=== PATIENT | male | born 1960 | race Caucasian/White ===

== ENCOUNTER 2017-09-03 15:15 | Emergency (ER) | payer MEDICARE ==
--- NOTE | 2017-09-03 15:52 | EDM.PDOC ---
ED HPI GENERAL MEDICAL PROBLEM - General Chief Complaint: ENT Problem Stated Complaint: TOOTH PAIN Time Seen by Provider: 09/03/17 15:18 Source of Information: Reports: Patient History Limitations: Reports: No Limitations - History of Present Illness INITIAL COMMENTS - FREE TEXT/NARRATIVE: HISTORY AND PHYSICAL: History of present illness: Patient is a 57-year-old male who presents to the emergency room with complaints of left lower jaw line pain and swelling. He states that he has had at least a dozen infections to his left lower posterior molar and has had a blocked salivary duct to that side as well. He states he usually takes penicillin and it resolves on its own. His dentist has given him a additional prescription for penicillin if this did occur in the future. Since he had this medication on hand and was only 6 months old, he did take penicillin for the past 2-3 days. She thought that the swelling was going down yesterday but woke up this morning with increased pain and swelling to the left low jaw line going into his neck. He states the pain is localized but does go down to his clavicle on the left side. He denies any fever or chills. Denies any chest pain, shortness of breath, abdominal pain, nausea, vomiting or diarrhea. Review of systems: As per history of present illness and below otherwise all systems reviewed and negative. Past medical history: As per history of present illness and as reviewed below otherwise noncontributory. Surgical history: As per history of present illness and as reviewed below otherwise noncontributory. Social history: No reported history of drug or alcohol abuse. Family history: As per history of present illness and as reviewed below otherwise noncontributory. Physical exam: General: Well-developed and well-nourished 57-year-old male. Alert and oriented. Nontoxic appearing and in no acute distress. HEENT: Atraumatic, normocephalic, pupils reactive, negative for conjunctival pallor or scleral icterus, mucous membranes moist, localized area of swelling to the left clavicluar lymph (no erythema) with tenderness to palpation, neck supple, nontender, trachea midline. Lungs: Clear to auscultation, breath sounds equal bilaterally, chest nontender. Heart: S1S2, regular rate and rhythm Abdomen: Soft, nondistended, nontender. Negative for masses or hepatosplenomegaly. Negative for costovertebral tenderness. Pelvis: Stable nontender. Genitourinary: Deferred. Rectal: Deferred. Extremities: Atraumatic, negative for cords or calf pain. Neurovascular unremarkable. Neuro: Awake, alert, oriented. Cranial nerves II through XII unremarkable. Cerebellum unremarkable. Motor and sensory unremarkable throughout. Exam nonfocal. CBC and CMP are within normal limits. The soft tissue CT shows inflammation within the left submandibular gland. No abscess or sialolith. This information was discussed with the patient and at bedside. We'll stop the patient's penicillin and switch him to clindamycin. Dental balls have been given to him. Saint [place]mo as needed for pain dispensed 10, no refill. May use Tylenol and/or ibuprofen. He states he'll follow-up with his dentist on Monday. Diagnostics: CBC, CMP, Soft Tissue Neck Therapeutics: Dental balls Impression: #1 Dental abscess #2 Submandibular Gland Inflammation Plan: 1. Please stop the antibiotic you have been taking. Clindamycin has been prescribed for you. [place]mo has been prescribed for you for evening and nighttime use. This medication does cause drowsiness he do not take it all driving or needing to be functioning outside of the house. Otherwise he may use Tylenol and /or ibuprofen for daytime use. 2. May use lemon drops to help with the discomfort with the salivary gland. He may want to follow up with ear nose and throat if this continues to be a problem. 3. Please follow-up with your dentist for definitive care. Return to the ED as needed and as discussed. Definitive disposition and diagnosis as appropriate pending reevaluation and review of above. throat Pain Score (Numeric/FACES): 5 - Related Data Allergies Allergy/AdvReac Type Severity Reaction Status Date / Time No Known Allergies Allergy Verified 09/03/17 15:21 Home Meds: Home Meds Celecoxib [CeleBREX] 50 mg PO DAILY 10/30/14 [History] Cyclobenzaprine [Flexeril] 10 mg PO DAILY 10/30/14 [History] Pregabalin [Lyrica] 225 mg PO BID 10/30/14 [History] Nortriptyline HCl [Pamelor] 1 cap PO DAILY 11/15/15 [History] Hydrocodone/Acetaminophen [Hydrocodon-Acetaminoph 7.5-325] 1 tab PO DAILY [History] Prednisone [IJD: predniSONE] 20 mg PO BID #10 tab 07/31/16 [Rx] Past Medical History HEENT History: Reports: None Cardiovascular History: Reports: None Respiratory History: Reports: None Gastrointestinal History: Reports: None Neurological History: Reports: None Psychiatric History: Reports: None Endocrine/Metabolic History: Reports: None Hematologic History: Reports: None Immunologic History: Reports: None Oncologic (Cancer) History: Reports: None Dermatologic History: Reports: None - Infectious Disease History Infectious Disease History: Reports: Chicken Pox - Past Surgical History Head Surgeries/Procedures: Reports: None HEENT Surgical History: Reports: None Musculoskeletal Surgical History: Reports: Shoulder Surgery Oncologic Surgical History: Reports: None Social & Family History - Family History HEENT: Reports: None Cardiac: Reports: None - Tobacco Use Smoking Status *Q: Current Every Day Smoker Years of Tobacco use: 25 Packs/Tins Daily: 0.5 Second Hand Smoke Exposure: Yes - Caffeine Use Caffeine Use: Reports: Coffee - Alcohol Use Days Per Week of Alcohol Use: 0 - Recreational Drug Use Recreational Drug Use: No Drug Use in Last 12 Months: No ED ROS ENT - Review of Systems Review Of Systems: ROS reveals no pertinent complaints other than HPI. ED EXAM, ENT - Physical Exam Exam: See Below (See dictation) Course - Vital Signs Last Recorded V/S: Last Vital Signs Temp 97.6 F 09/03/17 15:22 Pulse 113 H 09/03/17 15:22 Resp 18 09/03/17 15:22 BP 134/78 09/03/17 15:22 Pulse Ox - Orders/Labs/Meds Orders: Active Orders 24 hr Category Date Time Status Soft Tissue Neck w Cont [CT] Stat Exams 09/03/17 15:33 Taken Labs: Laboratory Tests 09/03/17 09/03/17 Range/Units 15:40 15:40 WBC 9.79 (4.0-11.0) K/uL RBC 4.90 (4.50-5.90) M/uL Hgb 15.2 (13.0-17.0) g/dL Hct 44.0 (38.0-50.0) % MCV 89.8 (80.0-98.0) fL MCH 31.0 (27.0-32.0) pg MCHC 34.5 (31.0-37.0) g/dL RDW Std Deviation 46.5 (28.0-62.0) fl RDW Coeff of Stanley 14 (11.0-15.0) % Plt Count 202 (150-400) K/uL MPV 10.30 (7.40-12.00) fL Neut % (Auto) 61.1 (48.0-80.0) % Lymph % (Auto) 29.7 (16.0-40.0) % [place] % (Auto) 7.8 (0.0-15.0) % Eos % (Auto) 1.2 (0.0-7.0) % Baso % (Auto) 0.2 (0.0-1.5) % Neut # (Auto) 6.0 H (1.4-5.7) K/uL Lymph # (Auto) 2.9 H (0.6-2.4) K/uL [place] # (Auto) 0.8 (0.0-0.8) K/uL Eos # (Auto) 0.1 (0.0-0.7) K/uL Baso # (Auto) 0.0 (0.0-0.1) K/uL Nucleated RBC % 0.0 /100WBC Nucleated RBCs # 0 K/uL Sodium 140 (136-146) mmol/L Potassium 4.1 (3.5-5.1) mmol/L Chloride 108 (98-110) mmol/L Carbon Dioxide 21 (21-31) mmol/L BUN 16 (6.0-23.0) mg/dL Creatinine 1.0 (0.6-1.5) mg/dL Est Cr Clr Drug Dosing 101.48 mL/min Estimated GFR (MDRD) > 60.0 ml/min Glucose 142 H (60-110) mg/dL Calcium 9.2 (8.8-10.8) mg/dL Total Bilirubin 0.4 (0.1-1.5) mg/dL AST 22 (5-40) IU/L ALT 28 (8-54) IU/L Alkaline Phosphatase 71 (40-150) Total Protein 7.5 (6.0-8.0) g/dL Albumin 4.2 (3.5-5.0) g/dL Globulin 3.3 (2.0-3.5) g/dL Albumin/Globulin Ratio 1.3 (1.3-2.8) Meds: Medications Discontinued Medications Generic Name Dose Route Start Last Admin Trade Name Ruth PRN Reason Stop Dose Admin Iopamidol 80 ml 09/03/17 16:59 09/03/17 16:59 Isovue-370 (76%) IVPUSH 09/03/17 17:00 80 ml ONETIME STA Administration Departure - Departure Time of Disposition: 17:36 Disposition: Home, Self-Care 01 Clinical Impression: Submandibular gland inflammation, Dental abscess - Discharge Information Referrals: Michael Rowland MD [Primary Care Provider] - Forms: ED Department Discharge Additional Instructions: My general discharge The following information is given to patients seen in the emergency department who are being discharged to home. This information is to outline your options for follow-up care. We provide all patients seen in our emergency department with a follow-up referral. The need for follow-up, as well as the timing and circumstances, are variable depending upon the specifics of your emergency department visit. If you don't have a primary care physician on staff, we will provide you with a referral. We always advise you to contact your personal physician following an emergency department visit to inform them of the circumstance of the visit and for follow-up with them and/or the need for any referrals to a consulting specialist. The emergency department will also refer you to a specialist when appropriate. This referral assures that you have the opportunity for follow-up care with a specialist. All of these measure are taken in an effort to provide you with optimal care, which includes your follow-up. Under all circumstances we always encourage you to contact your private physician who remains a resource for coordinating your care. When calling for follow-up care, please make the office aware that this follow-up is from your recent emergency room visit. If for any reason you are refused follow-up, please contact the [facility] Emergency Department at and asked to speak to the emergency department charge nurse. [facility] [address] [place] [id number] 1. Please stop the antibiotic you have been taking. Clindamycin has been prescribed for you. [place]mo has been prescribed for you for evening and nighttime use. This medication does cause drowsiness he do not take it all driving or needing to be functioning outside of the house. Otherwise he may use Tylenol and /or ibuprofen for daytime use. 2. May use lemon drops to help with the discomfort with the salivary gland. He may want to follow up with ear nose and throat if this continues to be a problem. 3. Please follow-up with your dentist for definitive care. Return to the ED as needed and as discussed. - My Orders Last 24 Hours: My Active Orders 09/03/17 15:33 Soft Tissue Neck w Cont [CT] Stat - Assessment/Plan Last 24 Hours: My Active Orders 09/03/17 15:33 Soft Tissue Neck w Cont [CT] Stat
[2017-09-03 16:16] LABS: CHLORIDE,CL 108 mmol/L (98-110); SODIUM,NA 140 mmol/L (136-146)
[2017-09-03] MEDS ORDERED: Iopamidol 755 Mg/ML 100 ML Bottle IVPUSH STA (16:59)
[2017-09-03] MEDS ORDERED: Benzocaine 20% Topical Spray UD MUCMEM ONE (17:37)
[2017-09-03] MEDS ORDERED: Lidocaine 2% Viscous Solution 15 ML Cup PO ONE (17:37)
[2017-09-03] MEDS ORDERED: Lidocaine 2% Viscous Solution 100 ML Bottle PO ONE (17:37)
[2017-09-03 17:52] VITALS: BP 104/78
--- NOTE | 2017-09-04 16:13 | CT ---
EXAM DATE: 09/03/17 PATIENT'S AGE: 57 Patient: NIALL NESS Facility: [place], [place] Site . Site : 1960 Study: CT ST Neck W CONT [id number]/[id number] 5:02:53 PM Ordering Physician: Doctor Walsh Final Report: INDICATION: Left-sided neck pain. Possible abscess. COMPARISON: none TECHNIQUE: A CT volumetric acquisition was performed of the neck during intravenous infusion of 80 cc of Isovue-370 nonionic intravenous contrast. FINDINGS: The CT images demonstrate normal aeration of the mastoid air cells and middle ear cavities. The paranasal sinuses are clear. The nasopharynx appears normal. The parotid glands are of normal size and have uniform enhancement. The anterior oropharynx is obscured by metallic spray artifact relating to dental fillings. The posterior oropharynx appears normal. The valleculae, epiglottis, aryepiglottic folds and piriform sinuses appear normal. The right submandibular gland appears normal. There is enlargement and edematous change within the left submandibular gland and there are adjacent enlarged lymph nodes measuring up to 8 mm in size. There is no evidence of central tissue necrosis or abscess formation within the inflamed left parotid gland. A few mildly enlarged lymph nodes are noted within the submental region. There is slight stranding within the fat planes involving the lower margin of the parotid gland and there is slight edema within the overlying platysma muscle. There is a normal appearance of the larynx and subglottic trachea. The thyroid gland is of normal size and has uniform density. There is milder reactive cervical lymph node enlargement within the left anterior cervical triangle. The right neck is clear of lymph node enlargement. IMPRESSION: Inflammation identified within the left submandibular gland. No evidence of abscess or sialolith. Please note that all CT scans at this facility use dose modulation, iterative reconstruction, and/or weight-based dosing when appropriate to reduce radiation dose to as low as reasonably achievable. Dictated by Fabio Casper MD @ Sep 03 2017 5:20PM (Electronic Signature) Report Signed by Proxy. [facility] SYSTEMPatricia
== END 2017-09-03 17:52 | disposition home or self-care (01) ==
LOC: MW.ED 15:15
DX: K04.7 Periapical abscess without sinus (principal); M27.2 Inflammatory conditions of jaws; F17.210 Nicotine dependence, cigarettes, uncomplicated; Z79.899 Other long term (current) drug therapy
CPT/HCPCS: 36415; 70491; 80053; 85025; 99283; A9270; Q9967

== ENCOUNTER 2018-11-29 10:43 | Emergency (ER) | payer MEDICARE ==
[2018-11-29] MEDS ORDERED: Sodium Chloride 0.9% 10 ML Syringe FLUSH PRN (10:49)
[2018-11-29] MEDS ORDERED: Ketorolac 30 MG/ML SDV IVPUSH ONE (10:49)
[2018-11-29] MEDS ORDERED: Morphine 2 MG/ML Syringe IVPUSH ONE (10:49)
[2018-11-29] MEDS ORDERED: Ondansetron 4 MG/2 ML SDV IVPUSH ONE (10:49)
[2018-11-29] MEDS ORDERED: Sodium Chloride 0.9% 2.5 ML Syringe FLUSH PRN (10:49)
--- NOTE | 2018-11-29 10:54 | EDM.PDOC ---
ED HPI GENERAL MEDICAL PROBLEM - General Chief Complaint: Chest Pain Stated Complaint: chest pain Time Seen by Provider: 11/29/18 10:48 - History of Present Illness INITIAL COMMENTS - FREE TEXT/NARRATIVE: HISTORY AND PHYSICAL: History of present illness: The patient is a 58-year-old male who follows with our family practice clinic and also has a pain doctor in [place] for which he follows for pain management for issues with brachial plexus injury and chronic pain on his left upper extremity, who presents this morning with complaints of sudden onset of right- sided chest pain. The patient says he had a normal day yesterday and slept fine and woke up and did all of his normal activities and as he was just doing normal functions he felt sudden onset of right-sided chest pain that he indicates is anteriorly just lateral to the right breast. He says it radiates to his lower ribs on the right but not to his shoulder or his back. He said that he felt nauseated and a little short of breath when it occurred and he says it felt like either a muscle spasm or a collapsed lung. He said he had a collapsed lung in the past with an accident but has had no other pulmonary issues. The patient says that the pain is worse with deep breaths and movement of his right arm. The pain does not radiate to the left and he has no abdominal complaints. The patient has not had vomiting or diarrhea has no flank pain or urinary complaints and no fevers chills cough runny nose or sore throat. He has no leg pain or swelling. The patient took one of his OxyContin prior to coming here and it did not improve so he came for evaluation. He tells me he has had gallbladder problems" in the past but he has never had any correction of that. He says he's been eating and drinking normally without issues and currently denies any upper abdominal pain. Patient says he smokes a few cigarettes occasionally but he denies any drug use and also denies any trauma to his right chest wall area Review of systems: As per history of present illness and below otherwise all systems reviewed and negative. Past medical history: As per history of present illness and as reviewed below otherwise noncontributory. Surgical history: As per history of present illness and as reviewed below otherwise noncontributory. Social history: No reported history of drug or alcohol abuse. Family history: As per history of present illness and as reviewed below otherwise noncontributory. Physical exam: General: Well-developed well-nourished man who is nontoxic and looks uncomfortable with movements in the ED. Vital signs are noted by me HEENT: Atraumatic, normocephalic, negative for conjunctival pallor or scleral icterus, mucous membranes moist, throat clear, neck supple, nontender, trachea midline. Lungs: Clear to auscultation, breath sounds equal bilaterally, chest nontender. On palpation of the anterior right chest wall I cannot reproduce the pain and there is no defects crepitus soft tissue changes ecchymosis or erythema. With range of motion of his right upper extremity the patient does grimace and say that the pain is reproduced with that. It is also reproduced when I have him go from supine to sitting position. Heart: S1S2, regular, negative for clicks, rubs, or JVD. Abdomen: Soft, nondistended, bowel sounds are slightly hypoactive and there is no rebound or guarding but there is some mild tenderness with palpation of the right upper quadrant. Negative for masses or hepatosplenomegaly. Negative for costovertebral tenderness. Pelvis: Stable nontender. Genitourinary: Deferred. Rectal: Deferred. Extremities: Atraumatic, negative for cords or calf pain. Neurovascular unremarkable. No pedal edema or leg asymmetry Neuro: Awake, alert, oriented. Cranial nerves II through XII unremarkable. Cerebellum unremarkable. Motor and sensory unremarkable throughout. Exam nonfocal. Diagnostics: EKG CBC CMP amylase lipase d-dimer INR chest x-ray CTA of the chest, CT of the abdomen and pelvis Therapeutics: IV O2 monitor IV fluids Toradol morphine Zofran I discussed with the patient and at length all testing results and he says he is feeling much improved and is able to speak pretty breaths and able to move his arm around better. He says he still has some discomfort but is significantly improved. He says he has intermittent pain with his shoulder and has chronic nerve pain on the left side and muscle spasms and he says he just feels somewhat concerned about today's presentation. I offered him CT scans of the chest and an abdomen 2 look more closely at his long and gallbladder area and feels more comfortable with investigating this to the maximum we can here in the ED. Patient and are aware of CT scan findings as well as the abnormality seen at the base of the left lung. At this point the patient does not have a cough fever or any left-sided chest pain and his labs are within normal limits so I will not treat this as a pneumonia clinically. I've advised him to continue to monitor his symptoms to see if anything develops regarding this finding. The patient says he has pain management options at home including muscle relaxers and has a pain management physician he can consult. He is comfortable with discharge home Impression: Right-sided chest pain Definitive disposition and diagnosis as appropriate pending reevaluation and review of above. right chest Pain Score (Numeric/FACES): 8 - Related Data Allergies Allergy/AdvReac Type Severity Reaction Status Date / Time No Known Allergies Allergy Verified 11/29/18 10:44 Home Meds: Home Meds Celecoxib [CeleBREX] 50 mg PO DAILY 10/30/14 [History] Cyclobenzaprine [Flexeril] 10 mg PO DAILY 10/30/14 [History] Pregabalin [Lyrica] 225 mg PO BID 10/30/14 [History] Nortriptyline HCl [Pamelor] 1 cap PO DAILY 11/15/15 [History] Hydrocodone/Acetaminophen [Hydrocodon-Acetaminoph 7.5-325] 1 tab PO DAILY [History] Prednisone [IJD: predniSONE] 20 mg PO BID #10 tab 07/31/16 [Rx] Past Medical History HEENT History: Reports: None Cardiovascular History: Reports: None Respiratory History: Reports: Pneumothorax Gastrointestinal History: Reports: Cholelithiasis Genitourinary History: Reports: None Musculoskeletal History: Reports: None Neurological History: Reports: Other (See Below) Other Neuro History: Brachial Plexus Psychiatric History: Reports: None Endocrine/Metabolic History: Reports: None Hematologic History: Reports: None Immunologic History: Reports: None Oncologic (Cancer) History: Reports: None Dermatologic History: Reports: None - Infectious Disease History Infectious Disease History: Reports: Chicken Pox - Past Surgical History Head Surgeries/Procedures: Reports: None HEENT Surgical History: Reports: None Cardiovascular Surgical History: Reports: None Respiratory Surgical History: Reports: Other (See Below) GI Surgical History: Reports: None Male Surgical History: Reports: None Endocrine Surgical History: Reports: None Neurological Surgical History: Reports: None, Other (See Below) Other Neurological Surgeries/Procedures: "surgery for brachial plexus" Musculoskeletal Surgical History: Reports: Shoulder Surgery Oncologic Surgical History: Reports: None Dermatological Surgical History: Reports: None Social & Family History - Family History HEENT: Reports: None Cardiac: Reports: None - Tobacco Use Smoking Status *Q: Current Some Day Smoker Years of Tobacco use: 5 Packs/Tins Daily: 0.1 - Caffeine Use Caffeine Use: Reports: Coffee - Recreational Drug Use Recreational Drug Use: No ED ROS GENERAL - Review of Systems Review Of Systems: ROS reveals no pertinent complaints other than HPI. ED EXAM, GENERAL - Physical Exam Exam: See Below (See dictation) Course - Vital Signs Last Recorded V/S: Last Vital Signs Temp 36.3 C 11/29/18 10:44 Pulse 84 11/29/18 12:40 Resp 18 11/29/18 12:40 BP 138/94 H 11/29/18 12:40 Pulse Ox 95 11/29/18 12:40 - Orders/Labs/Meds Orders: Active Orders 24 hr Category Date Time Status Cardiac Monitoring [RC] . DIRECTED Care 11/29/18 10:49 Active EKG Documentation Completion [RC] STAT Care 11/29/18 10:49 Active Oxygen Therapy, ED [RC] ASDIRECTED Care 11/29/18 10:49 Active Pulse Oximetry [RC] ASDIRECTED Care 11/29/18 10:49 Active Sodium Chloride 0.9% [Normal Saline] 1,000 ml Med 11/29/18 11:00 Active IV ASDIRECTED Sodium Chloride 0.9% [Saline Flush] Med 11/29/18 10:49 Active 10 ml FLUSH ASDIRECTED PRN Sodium Chloride 0.9% [Saline Flush] Med 11/29/18 10:49 Active 2.5 ml FLUSH ASDIRECTED PRN Saline Lock Insert [OM.PC] Stat Oth 11/29/18 10:49 Ordered Medication Orders Sodium Chloride (Normal Saline) 1,000 mls @ 125 mls/hr IV ASDIRECTED JULIETH Last Admin: 11/29/18 11:13 Dose: 125 mls/hr Sodium Chloride (Saline Flush) 10 ml FLUSH ASDIRECTED PRN PRN Reason: Keep Vein Open Last Admin: 11/29/18 11:12 Dose: 10 ml Sodium Chloride (Saline Flush) 2.5 ml FLUSH ASDIRECTED PRN PRN Reason: Keep Vein Open Last Admin: 11/29/18 11:12 Dose: 2.5 ml Labs: Laboratory Tests 11/29/18 11/29/18 11/29/18 Range/Units 10:50 10:50 10:50 WBC 6.08 (4.0-11.0) K/uL RBC 4.76 (4.50-5.90) M/uL Hgb 15.0 (13.0-17.0) g/dL Hct 43.4 (38.0-50.0) % MCV 91.2 (80.0-98.0) fL MCH 31.5 (27.0-32.0) pg MCHC 34.6 (31.0-37.0) g/dL RDW Std Deviation 48.8 (28.0-62.0) fl RDW Coeff of Stanley 15 (11.0-15.0) % Plt Count 170 (150-400) K/uL MPV 11.10 (7.40-12.00) fL Neut % (Auto) 49.7 (48.0-80.0) % Lymph % (Auto) 39.1 (16.0-40.0) % Orange % (Auto) 9.5 (0.0-15.0) % Eos % (Auto) 1.5 (0.0-7.0) % Baso % (Auto) 0.2 (0.0-1.5) % Neut # (Auto) 3.0 (1.4-5.7) K/uL Lymph # (Auto) 2.4 (0.6-2.4) K/uL Orange # (Auto) 0.6 (0.0-0.8) K/uL Eos # (Auto) 0.1 (0.0-0.7) K/uL Baso # (Auto) 0.0 (0.0-0.1) K/uL Nucleated RBC % 0.0 /100WBC Nucleated RBCs # 0 K/uL INR 0.96 D-Dimer, Quantitative 0.21 (0.0-0.50) mg/L FEU Sodium 139 (136-148) mmol/L Potassium 3.9 (3.5-5.1) mmol/L Chloride 104 (98-107) mmol/L Carbon Dioxide 23.2 (21.0-32.0) mmol/L BUN 15 (7.0-18.0) mg/dL Creatinine 1.0 (0.8-1.3) mg/dL Est Cr Clr Drug Dosing 97.65 mL/min Estimated GFR (MDRD) > 60.0 ml/min Glucose 108 H (74-106) mg/dL Calcium 9.2 (8.5-10.1) mg/dL Total Bilirubin 0.4 (0.2-1.0) mg/dL AST 14 L (15-37) IU/L ALT 27 (14-63) IU/L Alkaline Phosphatase 62 (46-116) U/L Total Protein 7.9 (6.4-8.2) g/dL Albumin 3.5 (3.4-5.0) g/dL Globulin 4.4 H (2.6-4.0) g/dL Albumin/Globulin Ratio 0.8 L (0.9-1.6) Amylase 44 (25-115) U/L Lipase 119 (73-393) U/L Meds: Medications Generic Name Dose Route Start Last Admin Trade Name Freq PRN Reason Stop Dose Admin Sodium Chloride 1,000 mls @ 125 mls/hr 11/29/18 11:00 11/29/18 11:13 Normal Saline IV 125 mls/hr ASDIRECTED JUILETH Administration Sodium Chloride 10 ml 11/29/18 10:49 11/29/18 11:12 Saline Flush FLUSH 10 ml ASDIRECTED PRN Administration Keep Vein Open Sodium Chloride 2.5 ml 11/29/18 10:49 11/29/18 11:12 Saline Flush FLUSH 2.5 ml ASDIRECTED PRN Administration Keep Vein Open Discontinued Medications Generic Name Dose Route Start Last Admin Trade Name Freq PRN Reason Stop Dose Admin Iopamidol 100 ml 11/29/18 12:34 11/29/18 12:49 Isovue Multipack-370 (76%) IVPUSH 11/29/18 12:35 100 ml ONETIME STA Administration Ketorolac Tromethamine 30 mg 11/29/18 10:49 11/29/18 11:01 Toradol IVPUSH 11/29/18 10:50 30 mg ONETIME ONE Administration Morphine Sulfate 4 mg 11/29/18 10:49 11/29/18 11:05 Morphine IVPUSH 11/29/18 10:50 4 mg ONETIME ONE Administration Ondansetron HCl 4 mg 11/29/18 10:49 11/29/18 10:59 Zofran IVPUSH 11/29/18 10:50 4 mg ONETIME ONE Administration Departure - Departure Time of Disposition: 13:40 Disposition: Home, Self-Care 01 Condition: Good Clinical Impression: Right-sided chest wall pain - Discharge Information Referrals: PCP,None [Primary Care Provider] - Forms: ED Department Discharge Additional Instructions: The following information is given to patients seen in the emergency department who are being discharged to home. This information is to outline your options for follow-up care. We provide all patients seen in our emergency department with a follow-up referral. The need for follow-up, as well as the timing and circumstances, are variable depending upon the specifics of your emergency department visit. If you don't have a primary care physician on staff, we will provide you with a referral. We always advise you to contact your personal physician following an emergency department visit to inform them of the circumstance of the visit and for follow-up with them and/or the need for any referrals to a consulting specialist. The emergency department will also refer you to a specialist when appropriate. This referral assures that you have the opportunity for followup care with a specialist. All of these measure are taken in an effort to provide you with optimal care, which includes your followup. Under all circumstances we always encourage you to contact your private physician who remains a resource for coordinating your care. When calling for followup care, please make the office aware that this follow-up is from your recent emergency room visit. If for any reason you are refused follow-up, please contact the [facility] emergency department at and ask to speak to the emergency department charge nurse. [facility] Primary care- Internal Medicine and Family [address] [address] Please connect with your provider in the clinic for reevaluation and further care and use her home medications as you choose for pain management. Also contact your pain management doctor as needed for further options. Do all activities more slowly as we discussed and return to ER as needed and as discussed. Apply ice or heat to areas of discomfort as you choose - My Orders Last 24 Hours: My Active Orders 11/29/18 10:49 Cardiac Monitoring [RC] . DIRECTED EKG Documentation Completion [RC] STAT Oxygen Therapy, ED [RC] ASDIRECTED Pulse Oximetry [RC] ASDIRECTED Sodium Chloride 0.9% [Saline Flush] 10 ml FLUSH ASDIRECTED PRN Sodium Chloride 0.9% [Saline Flush] 2.5 ml FLUSH ASDIRECTED PRN Saline Lock Insert [OM.PC] Stat 11/29/18 11:00 Sodium Chloride 0.9% [Normal Saline] 1,000 ml IV ASDIRECTED - Assessment/Plan Last 24 Hours: My Active Orders 11/29/18 10:49 Cardiac Monitoring [RC] . DIRECTED EKG Documentation Completion [RC] STAT Oxygen Therapy, ED [RC] ASDIRECTED Pulse Oximetry [RC] ASDIRECTED Sodium Chloride 0.9% [Saline Flush] 10 ml FLUSH ASDIRECTED PRN Sodium Chloride 0.9% [Saline Flush] 2.5 ml FLUSH ASDIRECTED PRN Saline Lock Insert [OM.PC] Stat 11/29/18 11:00 Sodium Chloride 0.9% [Normal Saline] 1,000 ml IV ASDIRECTED
[2018-11-29] MEDS ORDERED: Sodium Chloride 0.9% 1,000 ML IV SCH (11:00)
[2018-11-29 11:29] LABS: CHLORIDE,CL 104 mmol/L (98-107); SODIUM,NA 139 mmol/L (136-148)
--- NOTE | 2018-11-29 11:39 | CR ---
EXAMINATION: Portable chest radiograph. HISTORY: Shortness of breath. FINDINGS: The trachea is midline. The cardiomediastinal silhouette is within normal limits. No pulmonary infiltrates, effusions or pneumothorax. Osseous structures appear unremarkable. Left clavicle, scapula, and humerus hardware noted. IMPRESSION: No acute cardiopulmonary process.
[2018-11-29] MEDS ORDERED: Iopamidol 755 MG/ML 500 ML Multipack Bottle IVPUSH STA (12:34)
--- NOTE | 2018-11-29 13:22 | CT ---
EXAMINATION: CTA chest HISTORY: Chest pain COMPARISON: Radiographs dated 11/29/2018 TECHNIQUE: Axial CT imaging obtained through the chest following the administration of 100 mL of Isovue-370 in the right antecubital fossa. Coronal and sagittal reconstructions obtained. FINDINGS: There is mild infiltrate within the left lung base. Bibasilar atelectasis is also noted. No pleural effusion or pneumothorax. The heart is borderline in size without a pericardial effusion. The thoracic aorta is normal in caliber. The main and central pulmonary arteries are patent. Artifact obscures fine detail within the lung apices. Mild coronary artery calcifications are noted. Nonpathologically enlarged mediastinal and hilar lymph nodes noted, most likely reactive. Mild right gynecomastia. The visualized images of the upper abdomen are grossly unremarkable. No suspicious osseous abnormalities identified. IMPRESSION: 1. Mild consolidation within the left lung base, possibly developing pneumonia. 2. No pulmonary embolism identified. 3. Mild coronary artery calcifications.
--- NOTE | 2018-11-29 13:30 | CT ---
CT of the abdomen and pelvis with contrast. HISTORY: Pain TECHNIQUE: Axial CT images were obtained of the abdomen and pelvis following administration of 100 mL of Isovue-370 in the right antecubital fossa without complication. Coronal and sagittal reconstructions obtained. FINDINGS: Mild consolidation noted within the left lung base. The liver, spleen, adrenal glands, and pancreas appear normal. The gallbladder is normal. There is no bulky retroperitoneal lymphadenopathy or abdominal ascites. The kidneys enhance and function symmetrically without evidence of obstructive uropathy. The large and small bowel are normal in caliber without evidence of obstruction. No focal pericolonic inflammation or stranding. Minimal diverticulosis without evidence of diverticulitis. Urinary bladder is normal. No bulky pelvic lymphadenopathy or free pelvic fluid. The great old small epiploic appendagitis in the region of the sigmoid colon. No suspicious osseous abnormalities identified. IMPRESSION: 1. No definite acute findings within the abdomen or pelvis.
[2018-11-29 13:54] VITALS: BP 130/92
== END 2018-11-29 13:54 | disposition home or self-care (01) ==
LOC: MW.ED 10:43
DX: R07.89 Other chest pain (principal); Z79.899 Other long term (current) drug therapy
CPT/HCPCS: 36415; 71045; 71275; 74177; 80053; 82150; 83690; 85025; 85379; 85610; 93005; 96361; 96374; 96375; 99285; J1885; J2270; J2405; J7040; Q9967

== ENCOUNTER 2021-08-10 15:42 | Emergency (ER) | payer MEDICARE ==
[2021-08-10] MEDS ORDERED: Aspirin 81 MG Tab.Chew PO ONE (15:46)
[2021-08-10] MEDS ORDERED: Sodium Chloride 0.9% 2.5 ML Syringe FLUSH PRN (15:46)
[2021-08-10] MEDS ORDERED: Sodium Chloride 0.9% 10 ML Syringe FLUSH PRN (15:46)
[2021-08-10 16:56] LABS: CORONAVIRUS COVID-19 NAA NEGATIVE (NEGATIVE); INFLUENZA A NAA NEGATIVE (NEGATIVE); INFLUENZA B NAA NEGATIVE (NEGATIVE)
[2021-08-10 17:17] LABS: BLOOD UREA NITROGEN,BUN 19 mg/dL (7.0-18.0); CHLORIDE,CL 103 mmol/L (98-107); GLUCOSE RANDOM 95 mg/dL (74-106); POTASSIUM,K 4.2 mmol/L (3.5-5.1); SODIUM,NA 138 mmol/L (136-148)
[2021-08-10] MEDS ORDERED: Ketorolac 30 MG/ML SDV IVPUSH ONE (17:36)
[2021-08-10 18:16] VITALS: BP 119/78; PULSE 84
== END 2021-08-10 18:14 | disposition home or self-care (01) ==
LOC: MW.ED 15:42
DX: M94.0 Chondrocostal junction syndrome [Tietze] (principal); F17.210 Nicotine dependence, cigarettes, uncomplicated; Z79.899 Other long term (current) drug therapy; Z20.822 Contact with and (suspected) exposure to COVID-19
CPT/HCPCS: 0240U; 36415; 71045; 80053; 84484; 85025; 93005; 96374; 99284; A9270; J1885

== ENCOUNTER 2021-10-07 20:22 | Emergency (ER) | payer MEDICARE ==
[2021-10-07] MEDS ORDERED: Sodium Chloride 0.9% 10 ML Syringe FLUSH PRN (21:00)
[2021-10-07] MEDS ORDERED: Ketorolac 30 MG/ML SDV IVPUSH ONE (21:00)
[2021-10-07] MEDS ORDERED: HYDROmorphone 2 MG/ML Syringe IVPUSH ONE (21:00)
[2021-10-07] MEDS ORDERED: Sodium Chloride 0.9% 2.5 ML Syringe FLUSH PRN (21:00)
[2021-10-07 23:01] VITALS: BP 130/88; PULSE 101
== END 2021-10-07 23:04 | disposition home or self-care (01) ==
LOC: MW.ED 20:22
DX: S49.92XA Unspecified injury of left shoulder and upper arm, initial encounter (principal); W19.XXXA Unspecified fall, initial encounter
CPT/HCPCS: 71045; 73030; 96374; 96375; 99283; J1170; J1885

== ENCOUNTER 2024-04-22 10:24 | Emergency (ER) | payer OTHER, MEDICARE, BC ==
[2024-04-22 11:05] VITALS: BP 126/79; PULSE 103
== END 2024-04-22 11:43 | disposition home or self-care (01) ==
LOC: MW.ED 10:24
DX: S80.212A Abrasion, left knee, initial encounter (principal); M54.2 Cervicalgia; M25.512 Pain in left shoulder; Z85.79 Personal history of other malignant neoplasms of lymphoid, hematopoietic and related tissues; Z75.8 Other problems related to medical facilities and other health care; Z90.49 Acquired absence of other specified parts of digestive tract; Z79.899 Other long term (current) drug therapy; Z79.891 Long term (current) use of opiate analgesic; V43.52XA Car driver injured in collision with other type car in traffic accident, initial encounter
CPT/HCPCS: 70450; 70450-26; 71045; 71045-26; 72125; 72125-26; 73030-26-LT; 73030-LT; 73060-26-LT; 73060-LT; 73562-26-LT; 73562-LT; 99284

== ENCOUNTER 2024-07-23 10:35 | Emergency (ER) | payer MEDICARE, BC ==
[2024-07-23 12:18] VITALS: BP 111/81; PULSE 77
== END 2024-07-23 12:19 | disposition home or self-care (01) ==
LOC: MW.ED 10:35
DX: U07.1 COVID-19 (principal); Z75.8 Other problems related to medical facilities and other health care; Z79.899 Other long term (current) drug therapy
CPT/HCPCS: 87428-QW; 99283

== ENCOUNTER 2024-08-04 01:41 | Emergency (ER) | payer MEDICARE, BC ==
[2024-08-04] MEDS: Orphenadrine 60 MG/2 ML Inj IM ONE (02:38)
[2024-08-04 02:41] LABS: BASOPHILS ABSOLUTE AUTO 0.08 K/uL (0.00-0.20); BASOPHILS PERCENT AUTO 1.7 % (0.0-1.0); EOSINOPHILS ABSOLUTE AUTO 0.25 K/uL (0.00-0.45); EOSINOPHILS PERCENT AUTO 5.4 % (0.0-6.0); HEMATOCRIT 35.2 % (42.0-52.0); HEMOGLOBIN 12.4 g/dL (14.0-18.0); IMMATURE GRAN ABSOLUTE AUTO 0.01 K/uL (0.00-0.05); IMMATURE GRAN PERCENT AUTO 0.2 % (0.0-0.4); LYMPHOCYTES ABSOLUTE AUTO 1.91 K/uL (1.00-4.80); LYMPHOCYTES PERCENT AUTO 40.9 % (24.0-44.0); MEAN CORPUSCULAR HEMOGLOBIN 35.1 pg (28.0-32.0); MEAN CORPUSCULAR HGB CONC 35.2 g/dL (32.0-36.0); MEAN CORPUSCULAR VOLUME 99.7 fL (83.0-99.0); MEAN PLATELET VOLUME 9.7 fL (9.4-12.4); MONOCYTES ABSOLUTE AUTO 0.55 K/uL (0.00-0.80); MONOCYTES PERCENT AUTO 11.8 % (0.0-8.0); NEUTROPHILS ABSOLUTE AUTO 1.87 K/uL (1.80-7.70); PLATELET COUNT,PLT 108 K/uL (150-400); RED BLOOD CELL COUNT 3.53 M/uL (4.52-5.90); WHITE BLOOD CELL COUNT,WBC 4.67 K/uL (3.9-11.3)
[2024-08-04 03:10] LABS: A/G RATIO 1.4 (0.9-1.6); ALBUMIN 3.7 g/dL (3.4-5.0); BILIRUBIN TOTAL 0.3 mg/dL (0.2-1.0); CALCIUM 8.9 mg/dL (8.5-10.1); CARBON DIOXIDE,CO2 26.4 mmol/L (21.0-32.0); EST CRCL DRUG DOSING (CG) 91.62 mL/min; POTASSIUM,K 3.8 mmol/L (3.5-5.1); PROTEIN TOTAL,TP 6.3 g/dL (6.4-8.2)
[2024-08-04] MEDS: Diazepam 2 MG Tab PO ONE (03:23)
[2024-08-04 04:33] VITALS: BP 109/70; PULSE 84
== END 2024-08-04 04:32 | disposition home or self-care (01) ==
LOC: MW.ED 01:41
DX: K14.8 Other diseases of tongue (principal); K14.6 Glossodynia; Z94.81 Bone marrow transplant status; Z79.899 Other long term (current) drug therapy
CPT/HCPCS: 36415; 80053; 85025; 96372; 99283; A9270; J2360

== ENCOUNTER 2024-09-11 14:11 | Inpatient (IN) | payer BC, MEDICARE ==
[2024-09-11 16:45] LABS: HEMATOCRIT 36.7 % (42.0-52.0); HEMOGLOBIN 12.7 g/dL (14.0-18.0); MEAN CORPUSCULAR HEMOGLOBIN 33.9 pg (28.0-32.0); MEAN CORPUSCULAR HGB CONC 34.6 g/dL (32.0-36.0); MEAN CORPUSCULAR VOLUME 97.9 fL (83.0-99.0); MEAN PLATELET VOLUME 10.2 fL (9.4-12.4); PLATELET COUNT,PLT 96 K/uL (150-400); RED BLOOD CELL COUNT 3.75 M/uL (4.52-5.90)
[2024-09-11 17:06] LABS: BASOPHILS ABSOLUTE MAN 0.05 K/uL (0.00-0.20); BASOPHILS PERCENT MAN 1 % (0-1); EOSINOPHILS ABSOLUTE MAN 0.25 K/uL (0.00-0.45); EOSINOPHILS PERCENT MAN 5 % (0-6); LYMPHOCYTES ABSOLUTE MAN 1.81 K/uL (1.00-4.80); LYMPHOCYTES PERCENT MAN 37 % (24-44); MONOCYTES ABSOLUTE MAN 0.39 K/uL (0.00-0.80); MONOCYTES PERCENT MAN 8 % (0-8); SEG NEUTROPHILS PERCENT MAN 49 % (41-71)
[2024-09-11 17:36] LABS: A/G RATIO 1.4 (0.9-1.6); ALBUMIN 3.6 g/dL (3.4-5.0); BILIRUBIN TOTAL 0.4 mg/dL (0.2-1.0); CALCIUM 8.8 mg/dL (8.5-10.1); CARBON DIOXIDE,CO2 24.8 mmol/L (21.0-32.0); CREATININE 0.8 mg/dL (0.8-1.3); EST CRCL DRUG DOSING (CG) 113.02 mL/min; POTASSIUM,K 3.9 mmol/L (3.5-5.1); PROTEIN TOTAL,TP 6.2 g/dL (6.4-8.2)
[2024-09-11] MEDS: Iopamidol 755 MG/ML 500 ML Multipack Bottle IVPUSH STA (19:30)
[2024-09-11] MEDS: Pregabalin 200 MG Cap PO STA (20:47)
[2024-09-11] MEDS: Sodium Chloride 0.9% 10 ML Syringe FLUSH PRN (20:47)
[2024-09-11] MEDS: Pregabalin 25 MG Cap PO STA (20:47)
[2024-09-11] MEDS: Sodium Chloride 0.9% 2.5 ML Syringe FLUSH PRN (20:47)
[2024-09-11] MEDS: Heparin Sodium 5,000 Units/ML Vial IVPUSH STA (20:50)
[2024-09-11] MEDS: Heparin Sodium/0.45% NaCl 25,000 UNITS/250 ML BAG IV STA (20:53)
[2024-09-11] MEDS ORDERED: Heparin Sodium/0.45% NaCl 25,000 UNITS/250 ML BAG IV STA (21:58)
[2024-09-11] MEDS ORDERED: Albuterol/Ipratropium 3.0-0.5 MG/3 ML Neb Soln NEB PRN (23:11)
[2024-09-11] MEDS ORDERED: Melatonin 3 MG Tab PO PRN (23:11)
[2024-09-11] MEDS ORDERED: Acetaminophen 650 MG Supp RECTAL PRN (23:11)
[2024-09-11] MEDS ORDERED: Ondansetron 4 MG/2 ML SDV IVPUSH PRN (23:11)
[2024-09-11] MEDS ORDERED: Polyethylene Glycol 3350 Powder 17 GM Packet PO PRN (23:11)
[2024-09-12] MEDS: Heparin Sodium 5,000 Units/ML Vial IVPUSH ONE (04:45)
[2024-09-12 06:21] LABS: HEMATOCRIT 34.1 % (42.0-52.0); MEAN CORPUSCULAR HEMOGLOBIN 34.2 pg (28.0-32.0); MEAN CORPUSCULAR HGB CONC 35.2 g/dL (32.0-36.0); MEAN CORPUSCULAR VOLUME 97.2 fL (83.0-99.0); MEAN PLATELET VOLUME 10.1 fL (9.4-12.4); PLATELET COUNT,PLT 93 K/uL (150-400); RED BLOOD CELL COUNT 3.51 M/uL (4.52-5.90); WHITE BLOOD CELL COUNT,WBC 5.12 K/uL (3.9-11.3)
[2024-09-12 06:52] LABS: CALCIUM 8.1 mg/dL (8.5-10.1); CARBON DIOXIDE,CO2 25.3 mmol/L (21.0-32.0); CREATININE 0.8 mg/dL (0.8-1.3); EST CRCL DRUG DOSING (CG) 113.02 mL/min; MAGNESIUM 1.7 mg/dL (1.8-2.4); POTASSIUM,K 3.4 mmol/L (3.5-5.1)
[2024-09-12 06:55] LABS: BAND PERCENT MAN 2 %; EOSINOPHILS PERCENT MAN 2 % (0-6); LYMPHOCYTES ABSOLUTE MAN 2.97 K/uL (1.00-4.80); LYMPHOCYTES PERCENT MAN 58 % (24-44); MONOCYTES ABSOLUTE MAN 0.41 K/uL (0.00-0.80); MONOCYTES PERCENT MAN 8 % (0-8); SEG NEUTROPHILS ABSOLUTE MAN 1.43 K/uL (1.80-7.70); SEG NEUTROPHILS PERCENT MAN 28 % (41-71)
[2024-09-12 06:56] LABS: BASOPHILS PERCENT MAN 2 % (0-1)
[2024-09-12] MEDS: Sodium Chloride 0.9% 1,000 ML IV SCH (07:25)
[2024-09-12] MEDS: Magnesium Sulf/Wat 2 GM/50 mL 2 GM in Premix Bag 1 BAG IV ONE (09:25)
[2024-09-12] MEDS: Potassium Chloride 20 MEQ Tab.ER PO ONE (09:25)
[2024-09-12] MEDS: Nortriptyline 25 MG Cap PO SCH (10:50)
[2024-09-12] MEDS: Desvenlafaxine Succinate 25 MG TAB.ER PO SCH (10:50)
[2024-09-12] MEDS: Pregabalin 75 MG Cap PO SCH (10:51)
[2024-09-12] MEDS: Heparin Sodium/0.45% NaCl 25,000 UNITS/250 ML BAG IV STA (13:02)
[2024-09-13] MEDS: Heparin Sodium/0.45% NaCl 25,000 UNITS/250 ML BAG IV SCH (04:41)
[2024-09-13 05:45] LABS: HEMATOCRIT 36.4 % (42.0-52.0); HEMOGLOBIN 12.8 g/dL (14.0-18.0); MEAN CORPUSCULAR HEMOGLOBIN 34.2 pg (28.0-32.0); MEAN CORPUSCULAR HGB CONC 35.2 g/dL (32.0-36.0); MEAN CORPUSCULAR VOLUME 97.3 fL (83.0-99.0); MEAN PLATELET VOLUME 10.4 fL (9.4-12.4); PLATELET COUNT,PLT 91 K/uL (150-400); RED BLOOD CELL COUNT 3.74 M/uL (4.52-5.90); WHITE BLOOD CELL COUNT,WBC 4.59 K/uL (3.9-11.3)
[2024-09-13 05:46] LABS: BASOPHILS ABSOLUTE AUTO 0.08 K/uL (0.00-0.20); BASOPHILS PERCENT AUTO 1.8 % (0.0-1.0); EOSINOPHILS ABSOLUTE AUTO 0.34 K/uL (0.00-0.45); EOSINOPHILS PERCENT AUTO 7.7 % (0.0-6.0); IMMATURE GRAN ABSOLUTE AUTO 0.01 K/uL (0.00-0.05); IMMATURE GRAN PERCENT AUTO 0.2 % (0.0-0.4); LYMPHOCYTES ABSOLUTE AUTO 2.07 K/uL (1.00-4.80); LYMPHOCYTES PERCENT AUTO 46.6 % (24.0-44.0); MONOCYTES ABSOLUTE AUTO 0.42 K/uL (0.00-0.80); MONOCYTES PERCENT AUTO 9.5 % (0.0-8.0); NEUTROPHILS ABSOLUTE AUTO 1.52 K/uL (1.80-7.70); NEUTROPHILS PERCENT AUTO 34.2 % (41.0-71.0)
[2024-09-13 06:07] LABS: A/G RATIO 1.5 (0.9-1.6); ALBUMIN 3.6 g/dL (3.4-5.0); BILIRUBIN TOTAL 0.6 mg/dL (0.2-1.0); CALCIUM 7.7 mg/dL (8.5-10.1); CARBON DIOXIDE,CO2 22.5 mmol/L (21.0-32.0); CREATININE 0.9 mg/dL (0.8-1.3); EST CRCL DRUG DOSING (CG) 100.46 mL/min; MAGNESIUM 2.3 mg/dL (1.8-2.4); POTASSIUM,K 3.9 mmol/L (3.5-5.1)
[2024-09-13] MEDS: Apixaban 5 MG Tab PO SCH (18:24)
[2024-09-13] MEDS: Acetaminophen 325 MG Tab PO PRN (20:58)
[2024-09-13] MEDS: Nortriptyline 25 MG Cap PO SCH (20:59)
[2024-09-14] MEDS: Morphine 2 MG/ML SYRINGE IVPUSH ONE (02:13)
[2024-09-14] MEDS: oxyCODONE 5 MG Tab PO PRN (05:25)
[2024-09-14 06:01] LABS: HEMATOCRIT 35.4 % (42.0-52.0); HEMOGLOBIN 12.3 g/dL (14.0-18.0); MEAN CORPUSCULAR HEMOGLOBIN 34.2 pg (28.0-32.0); MEAN CORPUSCULAR HGB CONC 34.7 g/dL (32.0-36.0); MEAN CORPUSCULAR VOLUME 98.3 fL (83.0-99.0); MEAN PLATELET VOLUME 10.3 fL (9.4-12.4); PLATELET COUNT,PLT 87 K/uL (150-400); WHITE BLOOD CELL COUNT,WBC 4.94 K/uL (3.9-11.3)
[2024-09-14] MEDS: Apixaban 5 MG Tab PO SCH (08:44)
[2024-09-14] MEDS: Iopamidol 755 MG/ML 500 ML Multipack Bottle IVPUSH STA (16:31)
[2024-09-15 06:20] LABS: BASOPHILS ABSOLUTE AUTO 0.05 K/uL (0.00-0.20); BASOPHILS PERCENT AUTO 1.2 % (0.0-1.0); EOSINOPHILS PERCENT AUTO 4.7 % (0.0-6.0); HEMATOCRIT 34.3 % (42.0-52.0); HEMOGLOBIN 11.9 g/dL (14.0-18.0); LYMPHOCYTES PERCENT AUTO 42.7 % (24.0-44.0); MEAN CORPUSCULAR HEMOGLOBIN 34.2 pg (28.0-32.0); MEAN CORPUSCULAR HGB CONC 34.7 g/dL (32.0-36.0); MEAN CORPUSCULAR VOLUME 98.6 fL (83.0-99.0); MEAN PLATELET VOLUME 10.4 fL (9.4-12.4); MONOCYTES ABSOLUTE AUTO 0.65 K/uL (0.00-0.80); MONOCYTES PERCENT AUTO 15.4 % (0.0-8.0); NEUTROPHILS ABSOLUTE AUTO 1.52 K/uL (1.80-7.70); PLATELET COUNT,PLT 88 K/uL (150-400); RED BLOOD CELL COUNT 3.48 M/uL (4.52-5.90); WHITE BLOOD CELL COUNT,WBC 4.22 K/uL (3.9-11.3)
[2024-09-15 06:37] LABS: CALCIUM 7.5 mg/dL (8.5-10.1); CARBON DIOXIDE,CO2 24.1 mmol/L (21.0-32.0); CREATININE 0.9 mg/dL (0.8-1.3); EST CRCL DRUG DOSING (CG) 100.46 mL/min; POTASSIUM,K 3.7 mmol/L (3.5-5.1)
[2024-09-15] MEDS: Iopamidol 755 MG/ML 500 ML Multipack Bottle IVPUSH STA (07:34)
[2024-09-15 11:55] VITALS: BP 126/79; PULSE 89
[2024-09-15] MEDS ORDERED: Clopidogrel 75 MG Tab ONE (14:45)
[2024-09-15] MEDS ORDERED: Apixaban 5 MG Tab ONE (14:47)
== END 2024-09-15 12:57 | disposition home or self-care (01) | DRG 299 ==
LOC: MW.ED 14:11 → MW.MS 20:36
PROVIDERS: ADMIT Family Medicine; ATTEND Family Medicine
DX: I82.411 Acute embolism and thrombosis of right femoral vein (principal); I26.99 Other pulmonary embolism without acute cor pulmonale; H54.7 Unspecified visual loss; K80.20 Calculus of gallbladder without cholecystitis without obstruction; Z79.82 Long term (current) use of aspirin; G54.0 Brachial plexus disorders; Z75.8 Other problems related to medical facilities and other health care; D69.6 Thrombocytopenia, unspecified; F41.9 Anxiety disorder, unspecified; F32.A Depression, unspecified; I82.811 Embolism and thrombosis of superficial veins of right lower extremity; E87.6 Hypokalemia; E83.42 Hypomagnesemia; Z98.890 Other specified postprocedural states; Z85.79 Personal history of other malignant neoplasms of lymphoid, hematopoietic and related tissues; Z90.49 Acquired absence of other specified parts of digestive tract; Z79.899 Other long term (current) drug therapy; Z86.16 Personal history of COVID-19
CPT/HCPCS: 36415; 71275; 80053; 83880; 84484; 85025; 85610; 85730; 93005 ×2; 93971; 99284; Q9967; 70487; 70487-26; 80048; 83735; 85027; 93010; A9270-GY; J1644; J2270; J3475; J7030